=== PATIENT | female | born 1945 | race Caucasian/White ===

== ENCOUNTER 2018-08-20 11:45 | Outpatient (REF) | payer MEDICARE, OTHER, SELFPAY ==
[2018-08-20 20:51] LABS: HCT 39.4 % (36.0-46.0); HGB 12.8 g/dL (12.0-15.5); Mean Corp. HGB Concentration 32.5 g/dL (32.0-36.0); Mean Corpuscular Hemoglobin 32.4 pg (27.0-33.0); Mean Corpuscular Volume 99.7 fL (80-95); Mean Platelet Volume 9.4 fL (8.0-11.0); Platelet Count 328 x1000/uL (130-400); RBC 3.95 m/cumm (4.00-5.20); White Blood Cell Count 5.77 k/cumm (4.4-10.8)
[2018-08-20 21:08] LABS: TSH (W/Ref FT4) 1.28 uIU/mL (0.358-3.74)
[2018-08-20 21:11] LABS: Hemoglobin A1C 5.9 % (4.5-6.2)
[2018-08-20 21:22] LABS: Vitamin D 25 Total 53.2 ng/ml (30-100)
== END 2018-08-20 12:05 ==
LOC: NCHCN 11:45
PROVIDERS: PCP Family Medicine; Visit Provider Family Medicine
DX: E55.9 Vitamin D deficiency, unspecified (principal); R73.03 Prediabetes; R53.83 Other fatigue; R21 Rash and other nonspecific skin eruption; F33.9 Major depressive disorder, recurrent, unspecified; E66.9 Obesity, unspecified
CPT/HCPCS: 82306; 85027; 83036; 84443

== ENCOUNTER 2018-12-28 07:56 | Outpatient (REF) | payer MEDICARE, OTHER, SELFPAY ==
[2018-12-28 21:36] LABS: HCT 39.1 % (36.0-46.0); HGB 12.8 g/dL (12.0-15.5); Mean Corp. HGB Concentration 32.7 g/dL (32.0-36.0); Mean Corpuscular Hemoglobin 32.2 pg (27.0-33.0); Mean Corpuscular Volume 98.2 fL (80-95); Mean Platelet Volume 9.1 fL (8.0-11.0); Platelet Count 379 x1000/uL (130-400); RBC 3.98 m/cumm (4.00-5.20); RBC Distribution Width 13.1 % (11.7-14.6); White Blood Cell Count 6.19 k/cumm (4.4-10.8)
[2018-12-28 21:50] LABS: Hemoglobin A1C 5.8 % (4.5-6.2)
[2018-12-28 22:21] LABS: ALT 14 U/L (14-59); AST 14 U/L (15-37); Albumin 3.7 g/dL (3.4-5.0); Alkaline Phosphatase 81 U/L (46-116); Anion Gap 8.6 mmol/L (3-11); BUN 17 mg/dL (7-18); Bilirubin, Total 0.5 mg/dL (0.2-1.0); CO2 28.4 mmol/L (21.0-32.0); CREATININE 0.94 mg/dL (0.55-1.02); Calcium 8.6 mg/dL (8.5-10.1); Calculated LDL 173 mg/dL; Chloride 103 mmol/L (98-107); Cholesterol 258 mg/dL (50-200); Estimated GFR 58.53 (mL/min/1.73m2); Folate > 20.0 ng/mL (8.6-20.0); Glucose 116 mg/dL (70-100); HDL Cholesterol 64 mg/dL (40-60); Potassium 4.2 mmol/L (3.5-5.1); Sodium 140 mmol/L (136-145); Total Protein 7.3 g/dL (6.4-8.2); Triglyceride 107 mg/dL (30-150); Vitamin B12 921 pg/mL (193-986)
== END 2018-12-28 08:16 ==
LOC: NCHCN 07:56
PROVIDERS: PCP Family Medicine; Visit Provider Family Medicine
DX: E78.5 Hyperlipidemia, unspecified (principal); R73.03 Prediabetes; D53.9 Nutritional anemia, unspecified
CPT/HCPCS: 80053; 80061; 85027; 82607; 82746; 83036

== ENCOUNTER 2020-03-14 23:18 | Outpatient (REF) | payer MEDICARE, OTHER, SELFPAY ==
[2020-03-14 22:05] LABS: ALT 20 U/L (14-59); AST 17 U/L (15-37); Albumin 3.7 g/dL (3.4-5.0); Alkaline Phosphatase 81 U/L (46-116); Anion Gap 6.7 mmol/L (3-11); BUN 16 mg/dL (7-18); Bilirubin, Total 0.6 mg/dL (0.2-1.0); CO2 28.3 mmol/L (21.0-32.0); CREATININE 1.02 mg/dL (0.55-1.02); Calcium 8.7 mg/dL (8.5-10.1); Chloride 104 mmol/L (98-107); Estimated GFR 53.12 (mL/min/1.73m2); Glucose 103 mg/dL (74-106); Potassium 4.4 mmol/L (3.5-5.1); Sodium 139 mmol/L (136-145); Total Protein 6.9 g/dL (6.4-8.2)
[2020-03-14 22:11] LABS: Hemoglobin A1C 5.9 % (<5.7)
== END 2020-03-14 23:38 ==
LOC: NCHCN 23:18
PROVIDERS: PCP Family Medicine; Visit Provider Family Medicine
DX: R73.03 Prediabetes (principal); E66.9 Obesity, unspecified; Z00.00 Encounter for general adult medical examination without abnormal findings
CPT/HCPCS: 80053; 83036

== ENCOUNTER 2020-10-05 15:48 | Outpatient (REF) | payer MEDICARE, SELFPAY ==
[2020-10-05 20:31] LABS: Anion Gap 9.2 mmol/L (3-11); BUN 18 mg/dL (7-18); CO2 27.8 mmol/L (21.0-32.0); Calcium 8.9 mg/dL (8.5-10.1); Calculated LDL 170 mg/dL (<100); Chloride 102 mmol/L (98-107); Cholesterol 248 mg/dL (<200); Glucose 112 mg/dL (74-106); HDL Cholesterol 65 mg/dL (40-60); Hemoglobin A1C 6.1 % (<5.7); Potassium 4.6 mmol/L (3.5-5.1); Sodium 139 mmol/L (136-145); Triglyceride 68 mg/dL (<150)
== END 2020-10-05 15:49 | disposition home or self-care (01) ==
LOC: NCHCN 15:48
PROVIDERS: PCP Family Medicine; Visit Provider Family Medicine
DX: Z00.00 Encounter for general adult medical examination without abnormal findings (principal); R73.03 Prediabetes; E78.5 Hyperlipidemia, unspecified; E66.9 Obesity, unspecified; N18.9 Chronic kidney disease, unspecified
CPT/HCPCS: 80048; 80061; 83036

== ENCOUNTER 2021-10-02 18:08 | Outpatient (REF) | payer MEDICARE, OTHER, SELFPAY ==
[2021-10-02 15:52] LABS: Hemoglobin A1C 5.8 % (<5.7)
[2021-10-02 16:05] LABS: Anion Gap 8.9 mmol/L (3-11); BUN 17 mg/dL (7-18); CO2 27.1 mmol/L (21.0-32.0); Calcium 8.8 mg/dL (8.5-10.1); Calculated LDL 137 mg/dL (<100); Chloride 104 mmol/L (98-107); Cholesterol 222 mg/dL (<200); Estimated GFR 54.05 (mL/min/1.73m2); Glucose 117 mg/dL (74-106); HDL Cholesterol 65 mg/dL (40-60); Potassium 4.4 mmol/L (3.5-5.1); Sodium 140 mmol/L (136-145); Triglyceride 104 mg/dL (<150)
== END 2021-10-02 18:09 | disposition home or self-care (01) ==
LOC: NCHCN 18:08
PROVIDERS: PCP Family Medicine; Visit Provider Family Medicine
DX: E66.9 Obesity, unspecified (principal); R73.03 Prediabetes; R53.83 Other fatigue
CPT/HCPCS: 80048; 80061; 83036

== ENCOUNTER 2023-09-17 07:41 | Outpatient (REF) | payer MEDICARE, OTHER, SELFPAY ==
[2023-09-17 15:56] LABS: ALT 20 U/L (14-59); AST 16 U/L (15-37); Albumin 3.9 g/dL (3.4-5.0); Alkaline Phosphatase 74 U/L (46-116); Anion Gap 9.1 mmol/L (3-11); BUN 16 mg/dL (7-18); Bilirubin, Total 0.58 mg/dL (0.2-1.0); CO2 26.9 mmol/L (21.0-32.0); Calcium 9.3 mg/dL (8.5-10.1); Calculated LDL 162 mg/dL (<100); Chloride 104 mmol/L (98-107); Cholesterol 252 mg/dL (<200); Estimated GFR 58.02 (mL/min/1.73m2); Glucose 138 mg/dL (74-106); HDL Cholesterol 64 mg/dL (40-60); Potassium 4.1 mmol/L (3.5-5.1); Sodium 140 mmol/L (136-145); Total Protein 7.7 g/dL (6.4-8.2); Triglyceride 134 mg/dL (<150); Vitamin D 25 Total 45.4 ng/mL (30-100)
[2023-09-17 15:57] LABS: Hemoglobin A1C 6.1 % (<5.7)
== END 2023-09-17 07:42 | disposition home or self-care (01) ==
LOC: NCHCN 07:41
PROVIDERS: PCP Family Medicine; Visit Provider Family Medicine
DX: E78.5 Hyperlipidemia, unspecified (principal); E55.9 Vitamin D deficiency, unspecified; R73.03 Prediabetes; E66.9 Obesity, unspecified
CPT/HCPCS: 80053; 80061; 82306; 83036

== ENCOUNTER 2024-09-22 13:38 | Outpatient (REF) | payer MEDICARE, OTHER, SELFPAY ==
[2024-09-22 16:21] LABS: ALT 20 U/L (14-59); AST 19 U/L (15-37); Albumin 4.0 g/dL (3.4-5.0); Alkaline Phosphatase 91 U/L (46-116); Anion Gap 9.1 mmol/L (3-11); BUN 16 mg/dL (7-18); Bilirubin, Total 0.7 mg/dL (0.2-1.0); CO2 26.9 mmol/L (21.0-32.0); Calcium 9.2 mg/dL (8.5-10.1); Calculated LDL 168 mg/dL (<100); Chloride 103 mmol/L (98-107); Cholesterol 259 mg/dL (<200); Estimated GFR 57.66 (mL/min/1.73m2); Glucose 128 mg/dL (74-106); HDL Cholesterol 74 mg/dL (>or=50); Potassium 4.1 mmol/L (3.5-5.1); Sodium 139 mmol/L (136-145); Total Protein 7.9 g/dL (6.4-8.2); Triglyceride 88 mg/dL (<150)
[2024-09-22 16:47] LABS: Hemoglobin A1C 6.0 % (<5.7)
== END 2024-09-22 13:39 | disposition home or self-care (01) ==
LOC: NCHCN 13:38
PROVIDERS: PCP Family Medicine; Visit Provider Family Medicine
DX: N18.30 Chronic kidney disease, stage 3 unspecified (principal); R73.03 Prediabetes
CPT/HCPCS: 80053; 80061; 83036

== ENCOUNTER 2024-12-28 10:00 | Outpatient (REF) | payer MEDICARE, OTHER, SELFPAY ==
[2024-12-28 17:15] LABS: Hemoglobin A1C 6.1 % (<5.7)
[2024-12-28 17:17] LABS: ALT 20 U/L (14-59); AST 19 U/L (15-37); Albumin 3.8 g/dL (3.4-5.0); Alkaline Phosphatase 81 U/L (46-116); Anion Gap 10.4 mmol/L (3-11); BUN 20 mg/dL (7-18); Bilirubin, Total 0.5 mg/dL (0.2-1.0); CO2 26.6 mmol/L (21.0-32.0); Calcium 9.0 mg/dL (8.5-10.1); Calculated LDL 122 mg/dL (<100); Chloride 102 mmol/L (98-107); Cholesterol 214 mg/dL (<200); Estimated GFR 51.43 (mL/min/1.73m2); Glucose 125 mg/dL (74-106); HDL Cholesterol 75 mg/dL (>or=50); Potassium 4.3 mmol/L (3.5-5.1); Sodium 139 mmol/L (136-145); Total Protein 7.9 g/dL (6.4-8.2); Triglyceride 87 mg/dL (<150)
== END 2024-12-28 10:01 | disposition home or self-care (01) ==
LOC: NCHCN 10:00
PROVIDERS: PCP Family Medicine; Visit Provider Family Medicine
DX: R73.03 Prediabetes (principal)
CPT/HCPCS: 80053; 80061; 83036